=== PATIENT | female | born 1975 | race Two or more races ===

== ENCOUNTER 2019-04-01 10:11 | Inpatient (IN) | payer MEDICAID ==
[~2019-04-01] VITALS: Ht 152.4 cm; Wt 107.9 kg
[2019-04-01 10:20] VITALS: BP 125/86
--- NOTE | 2019-04-01 10:20 | NUR ---
ED Nurse Note: Patient walked into ED c/o upper abdominal pain that started earlier this morning at around 0300, patient reports a sudden acute pain that woke her up, describes it as epigastric with a rate of 10/10 pain. denies any episodes of vomit however states that she is nauseous, IV started on left AC 20 gauge, placed on a button breaker. labs sent down. will continue to monitor
[2019-04-01] MEDS ORDERED: Morphine Sulfate 4mg/ml Inj (IV USE ONLY) IVP ONE (10:30)
--- NOTE | 2019-04-01 10:30 | Emergency Room Report ---
History of Present Illness General Chief Complaint: Abdominal Pain Source: Patient Present Illness HPI Patient is a 43-year-old female presented after acute onset of epigastric pain. This radiates to her back. Patient reports having onset of symptoms approximately 3:00 this morning. She denies any recent alcohol use. She denies prior history of gallstones. Denies similar episodes of pain in the past. Had not been vomiting but had increased nausea. She denies any black or bloody stools. Denies any vomiting. Pain is constant nature. Patient denies being . Denies prior surgeries. Denies history of diabetes or ulcer disease. Allergies: Coded Allergies: No Known Allergies (Unverified , 04/01/19) Patient History Past Medical History: see triage record Last Menstrual Period: 03/20/2019 Now: No : 1 Para: 1 Reviewed Nursing Documentation: PMH: Agreed; PSxH: Agreed Nursing Documentation-PM Past Medical History: No Stated History Review of Systems All Other Systems: negative except mentioned in HPI Physical Exam Vital Signs Date Time Temp Pulse Resp B/P (MAP) Pulse Ox O2 Delivery O2 Flow Rate FiO2 04/01/19 10:15 97.5 80 18 125/86 (99) 100 Room Air Sp02 EP Interpretation: reviewed, normal General Appearance: normal inspection, well appearing, no apparent distress, alert, GCS 15 Head: atraumatic ENT: normal ENT inspection, hearing grossly normal, normal voice Neck: normal inspection, full range of motion, supple, no bony tend Respiratory: normal inspection, lungs clear, normal breath sounds, no respiratory distress, no retraction, no wheezing Cardiovascular #1: regular rate, rhythm, no edema Gastrointestinal: normal inspection, normal bowel sounds, non tender, soft, no guarding, no hernia Genitourinary: no CVA tenderness Musculoskeletal: normal inspection, back normal, normal range of motion Neurologic: normal inspection, alert, oriented x3, responsive, speech normal Psychiatric: normal inspection, judgement/insight normal, mood/affect normal Medical Decision Making Diagnostic Impression: Primary Impression: Symptomatic cholelithiasis ER Course Patient presented for abdominal pain. Differential diagnoses pancreatitis, included ischemic bowel, appendicitis, perforated viscus, abdominal aortic aneurysm, inferior myocardial infarction, viral gastroenteritis among others.Because patient's complexity imaging studies, and laboratory testing ordered. Laboratory testing showed . Electrolytes normal Lipase was normal White blood count was normal White blood count Abdominal ultrasound showed large gallstone in the gallbladder neck without any evidence of pericolic fluid or wall thickening. Patient was given morphine for pain. She continued to have pain and was also given additional dose of Toradol. Patient was given additional dose of morphine as well. Patient continued to have pain which is approximately 8 hours after pains onset.Dr. Albarran was contacted for Dr. Can for inpatient management. Dr. Up was contacted for surgical consult. Labs Test 04/01/19 10:20 White Blood Count 9.9 K/UL (4.8-10.8) Red Blood Count 5.10 M/UL (4.20-5.40) Hemoglobin 14.4 G/DL (12.0-16.0) Hematocrit 43.4 % (37.0-47.0) Mean Corpuscular Volume 85 FL (80-99) Mean Corpuscular Hemoglobin 28.2 PG (27.0-31.0) Mean Corpuscular Hemoglobin Concent 33.1 G/DL (32.0-36.0) Red Cell Distribution Width 11.0 % (11.6-14.8) Platelet Count 278 K/UL (150-450) Mean Platelet Volume 6.8 FL (6.5-10.1) Neutrophils (%) (Auto) 79.7 % (45.0-75.0) Lymphocytes (%) (Auto) 17.2 % (20.0-45.0) Monocytes (%) (Auto) 2.4 % (1.0-10.0) Eosinophils (%) (Auto) 0.1 % (0.0-3.0) Basophils (%) (Auto) 0.6 % (0.0-2.0) Prothrombin Time 9.5 SEC (9.30-11.50) Prothromb Time International Ratio 0.9 (0.9-1.1) Activated Partial Thromboplast Time 28 SEC (23-33) Urine Color Pale yellow Urine Appearance Clear Urine pH 5 (4.5-8.0) Urine Specific [place] 1.020 (1.005-1.035) Urine Protein 1+ (NEGATIVE) Urine Glucose (UA) Negative (NEGATIVE) Urine Ketones 2+ (NEGATIVE) Urine Blood 2+ (NEGATIVE) Urine Nitrite Negative (NEGATIVE) Urine Bilirubin Negative (NEGATIVE) Urine Urobilinogen Normal MG/DL (0.0-1.0) Urine Leukocyte Esterase 2+ (NEGATIVE) Urine RBC 0-2 /HPF (0 - 2) Urine WBC 2-4 /HPF (0 - 2) Urine Squamous Epithelial Cells Moderate /LPF (NONE/OCC) Urine Bacteria Few /HPF (NONE) Urine Mucus Few /LPF (NONE/OCC) Urine HCG, Qualitative Negative (NEGATIVE) Sodium Level 137 MMOL/L (136-145) Potassium Level 3.5 MMOL/L (3.5-5.1) Chloride Level 103 MMOL/L (98-107) Carbon Dioxide Level 24 MMOL/L (21-32) Anion Gap 10 mmol/L (5-15) Blood Urea Nitrogen 9 mg/dL (7-18) Creatinine 0.8 MG/DL (0.55-1.30) Estimat Glomerular Filtration Rate > 60 mL/min (>60) Glucose Level 122 MG/DL (74-106) Calcium Level 8.9 MG/DL (8.5-10.1) Total Bilirubin 0.3 MG/DL (0.2-1.0) Aspartate Amino Transf (AST/SGOT) 23 U/L (15-37) Alanine Aminotransferase (ALT/SGPT) 36 U/L (12-78) Alkaline Phosphatase 81 U/L (46-116) Total Protein 7.8 G/DL (6.4-8.2) Albumin 3.9 G/DL (3.4-5.0) Globulin 3.9 g/dL Albumin/Globulin Ratio 1.0 (1.0-2.7) Lipase 222 U/L (73-393) Urine Opiates Screen Negative (NEGATIVE) Urine Barbiturates Screen Negative (NEGATIVE) Phencyclidine (PCP) Screen Negative (NEGATIVE) Urine Amphetamines Screen Negative (NEGATIVE) Urine Benzodiazepines Screen Negative (NEGATIVE) Urine Cocaine Screen Negative (NEGATIVE) Urine Marijuana (THC) Screen Negative (NEGATIVE) Last Vital Signs Date Time Temp Pulse Resp B/P (MAP) Pulse Ox O2 Delivery O2 Flow Rate FiO2 04/01/19 10:15 97.5 80 18 125/86 (99) 100 Room Air Status: unchanged Disposition: ADMITTED INPATIENT Condition: Stable Referrals: [facility],REFERRING (PCP) Gabriel Dominguez MD Apr 01, 2019 10:30
[2019-04-01 10:44] LABS: BASOPHILS % (AUTO) 0.6 % (0.0-2.0); EOSINOPHILS % (AUTO) 0.1 % (0.0-3.0); HEMATOCRIT 43.4 % (37.0-47.0); HEMOGLOBIN 14.4 G/DL (12.0-16.0); LYMPHOCYTES % (AUTO) 17.2 % (20.0-45.0); MEAN CORPUSCULAR VOLUME 85 FL (80-99); MONOCYTES % (AUTO) 2.4 % (1.0-10.0); NEUTROPHILS % (AUTO) 79.7 % (45.0-75.0); PLATELET COUNT 278 K/UL (150-450); WHITE BLOOD COUNT 9.9 K/UL (4.8-10.8)
[2019-04-01 10:46] LABS: APPEARANCE,URINE CLEAR; BILIRUBIN, URINE NEGATIVE (NEGATIVE); COLOR,URINE PALE YELLOW; GLUCOSE, URINE (UA) NEGATIVE (NEGATIVE); KETONES,URINE 2+ (NEGATIVE); LEUKOCYTE ESTERASE ,URINE 2+ (NEGATIVE); NITRITE,URINE NEGATIVE (NEGATIVE); PH,URINE 5 (4.5-8.0); PROTEIN,URINE 1+ (NEGATIVE); UROBILINOGEN,URINE NORMAL MG/DL (0.0-1.0)
[2019-04-01 10:49] LABS: INR 0.9 (0.9-1.1)
[2019-04-01 10:57] LABS: ALANINE AMINOTRANSFERASE 36 U/L (12-78); ALBUMIN 3.9 G/DL (3.4-5.0); ALKALINE PHOSPHATASE 81 U/L (46-116); ANION GAP 10 mmol/L (5-15); ASPARTATE AMINO TRANSFERASE 23 U/L (15-37); BILIRUBIN,TOTAL 0.3 MG/DL (0.2-1.0); BLOOD UREA NITROGEN 9 mg/dL (7-18); CALCIUM 8.9 MG/DL (8.5-10.1); CARBON DIOXIDE 24 MMOL/L (21-32); CHLORIDE 103 MMOL/L (98-107); CREATININE 0.8 MG/DL (0.55-1.30); POTASSIUM 3.5 MMOL/L (3.5-5.1); SODIUM 137 MMOL/L (136-145)
--- NOTE | 2019-04-01 11:35 | Diagnostic Imaging Report ---
EXAM: US Abdomen Complete CLINICAL HISTORY: PAIN TECHNIQUE: Real-time ultrasound of the abdomen (complete) with image documentation. COMPARISON: No relevant prior studies available. FINDINGS: Liver: Liver diameter 17.82 cm. Diffusely increased echotexture. No visible parenchymal lesions. No intrahepatic biliary ductal dilatation. Gallbladder: Cholelithiasis with stones measuring up to 2.7 cm, and a stone lodged in the gallbladder neck. No wall thickening. No pericholecystic fluid. Common bile duct: Common bile duct diameter 0.47 mm, within normal limits. Pancreas: Unremarkable as visualized. Pancreatic body and tail are obscured by bowel gas. Kidneys: Right kidney length of 11.52 cm. Left kidney length of 10.95 cm. Normal cortical thickness. No visible stones. No hydronephrosis. 1. 2 cm simple-appearing cyst in the left lower renal pole. Spleen: Spleen length of 8.36 cm, within normal limits. Aorta: Unremarkable. Visualized portions appear unremarkable without evidence of aneurysm. Inferior vena cava: Unremarkable. IMPRESSION: 1. Cholelithiasis with stones measuring up to 2.7 cm and the stone lodged in the gallbladder neck. No gallbladder wall thickening or pericholecystic fluid. No blurry ductal dilatation. 2. 1.2 cm simple-appearing cortical cyst in the left lower renal pole. 3. Diffusely echogenic liver, suggesting fatty infiltration.
[2019-04-01] MEDS ORDERED: Ketorolac 30mg Inj IV ONE (12:15)
--- NOTE | 2019-04-01 12:15 | NUR ---
ED Nurse Note: informed Dr. Dominguez of patients pain, rates a 01/07. will wait for further orders
[2019-04-01] MEDS ORDERED: Morphine Sulfate 2mg/ml Inj(IV/IM USE ONLY) IVP ONE (12:30)
[2019-04-01] MEDS ORDERED: D5 1/2NS 1,000 ML IV SCH (13:00)
[2019-04-01 13:25] VITALS: BP 135/82
--- NOTE | 2019-04-01 14:32 | NUR ---
ED Nurse Note: Patient in bed waiting for room assignment. will continue to monitor
[2019-04-01] MEDS ORDERED: Milk of Magnesia 30ml Ud ORAL PRN (15:15)
[2019-04-01] MEDS ORDERED: LORazepam 1mg tab ORAL PRN (15:15)
[2019-04-01] MEDS ORDERED: Morphine Sulfate 2mg/ml Inj(IV/IM USE ONLY) IVP PRN (15:15)
[2019-04-01] MEDS ORDERED: Mylanta II UD 30ml ORAL PRN (15:15)
[2019-04-01 15:40] VITALS: BP 110/60
[2019-04-01 16:00] VITALS: BP 130/89
--- NOTE | 2019-04-01 16:00 | NUR ---
TRANSFER TO FLOOR: Patient transferred to Med-surg as ordered, per . Reprot given to CLIFF Barrett
--- NOTE | 2019-04-01 16:55 | NUR ---
NURSE NOTES: Received patient awake, alert and oriented via gurney from the ED. Oriented patient to room. Belongings verified. Bed at lowest level with 2 side rails up. Call light within reach. In no apparent distress at this time. Will continue to monitor.
[2019-04-01] MEDS: cefTRIAXone 1 GM in NS 55 ML IVPB SCH (17:59)
[2019-04-01] MEDS: Morphine Sulfate 2mg/ml Inj(IV/IM USE ONLY) IVP PRN (17:59)
--- NOTE | 2019-04-01 19:20 | NUR ---
HAND-OFF: Report given to CLIFF Hairston.
[2019-04-01] MEDS ORDERED: Morphine Sulfate 4mg/ml Inj (IV USE ONLY) IVP PRN ×2 (19:45→20:30)
--- NOTE | 2019-04-01 19:46 | NUR ---
NURSE NOTES: Pt is in bed AOx4, verbally able to needs known, Uz[place] speaking. Breathing on room air. No acute distress noted. IV on L AC 20g is patent. Called Dr Up to increase the dosage of pain medicine due to C/O current dosage is not effective. Order received and carried out. Bed in low and locked position. Call light within reach. Will continue to monitor the pt for safety.
[2019-04-01 20:00] VITALS: BP 137/83
[2019-04-01] MEDS: Docusate 100mg cap ORAL SCH (21:00)
--- NOTE | 2019-04-01 21:07 | History and Physical ---
History of Present Illness General Date patient seen: Apr 01, 2019 Reason for Hospitalization: Abdominal Pain Present Illness HPI This is a 43-year-old female with a past medical history of obesity presenting with right upper quadrant, constant, sharp, 8 out of 10, radiating to her back abdominal pain since 3 AM this morning. The patient had a similar episode 2 years ago and it resolved on its own. She has some nausea but no vomiting. Denies any fever or chills chest pain shortness of breath cough. In the ER the patient had a temperature 97.5 pulse 80 respirations 18 pressure 125/86 saturating 100% on room air. WBCs 9.9 lipase 222 CMP and CBC normal. INR 0.9 UA negative, UDS negative. Right upper quadrant ultrasound showed cholelithiasis Allergies: None Medications B12 Past medical history none Surgical history left breast mass excision Family history mother breast cancer at 85 Allergies: Coded Allergies: No Known Allergies (Unverified , 04/01/19) Medication History No Active Prescriptions or Reported Meds Patient History Healthcare decision maker Resuscitation status Full Code Advanced Directive on File Review of Systems Constitutional: Denies: see HPI, chills, sweats, fever, malaise, weakness, other Eye: Denies: see HPI, eye pain, blurred vision, tearing, double vision, nose pain, nose congestion, acuity changes, discharge, other ENT: Denies: see HPI, ear pain, ear discharge, nose pain, nose congestion, throat pain, throat swelling, mouth pain, hearing loss, nasal discharge, other Respiratory: Denies: see HPI, cough, orthopnea, shortness of breath, stridor, wheezing, SCHAFER, sputum, other Cardiovascular: Denies: see HPI, chest pain, edema, palpitations, syncope, PND , other Gastrointestinal: Reports: abdominal pain, nausea; Denies: see HPI, constipation, diarrhea, vomiting, melena, hematemesis, other Genitourinary: Denies: see HPI, discharge, dysuria, frequency, hematuria, pain , retention, incontinence, urgency, vag bleed/dc, other Musculoskeletal: Denies: see HPI, back pain, gout, joint pain, joint swelling, muscle pain, muscle stiffness, other Skin: Denies: see HPI, rash, change in color, change in hair/nails, dryness, lesions, other Psychiatric: Denies: see HPI, prior hx, anxiety, depressed feelings, emotional problems, SI, HI, hallucinations, other Neurological: Denies: see HPI, headache, numbness, paresthesia, seizure, tingling, tremors, focal weakness, syncope, dizziness, other Endocrine: Denies: see HPI, excessive sweating, flushing, intolerance to temperature, increased thirst, increased urine, unexplained weight loss, other Hematologic/Lymphatic: Denies: see HPI, anemia, blood clots, easy bleeding, easy bruising, swollen glands, diathesis, other Physical Exam General Appearance: WD/WN, no apparent distress, alert Lines, tubes and drains: peripheral HEENT: normocephalic, atraumatic Neck: non-tender, normal alignment, supple Respiratory/Chest: chest wall non-tender, lungs clear, normal breath sounds Cardiovascular/Chest: normal peripheral pulses, normal rate, regular rhythm, no JVD Abdomen: other - Soft, nondistended, bowel sounds present, tenderness to palpation of epigastric and right upper quadrant with positive De Jesus sign Extremities: normal range of motion, non-tender Skin Exam: normal pigmentation, warm/dry Neurologic: wafer cleaner II-XII grossly normal, no motor/sensory deficits, alert, oriented x 3 Lymphatic: anterior cervical - No lymphadenopathy Last 24 Hour Vital Signs Date Time Temp Pulse Resp B/P (MAP) Pulse Ox O2 Delivery O2 Flow Rate FiO2 04/01/19 18:29 98.1 04/01/19 16:13 Room Air 04/01/19 16:00 98.5 83 20 127/70 98 Room Air 04/01/19 16:00 98.1 88 18 130/89 (103) 98 04/01/19 15:40 98.2 83 18 110/60 100 Room Air 04/01/19 13:25 97.5 86 18 135/82 100 Room Air 04/01/19 11:05 97.5 04/01/19 10:20 80 18 Room Air 04/01/19 10:20 97.5 86 18 125/86 100 Room Air 04/01/19 10:15 97.5 80 18 125/86 (99) 100 Room Air Laboratory Tests Test 04/01/19 10:20 White Blood Count 9.9 K/UL (4.8-10.8) Red Blood Count 5.10 M/UL (4.20-5.40) Hemoglobin 14.4 G/DL (12.0-16.0) Hematocrit 43.4 % (37.0-47.0) Mean Corpuscular Volume 85 FL (80-99) Mean Corpuscular Hemoglobin 28.2 PG (27.0-31.0) Mean Corpuscular Hemoglobin Concent 33.1 G/DL (32.0-36.0) Red Cell Distribution Width 11.0 % (11.6-14.8) L Platelet Count 278 K/UL (150-450) Mean Platelet Volume 6.8 FL (6.5-10.1) Neutrophils (%) (Auto) 79.7 % (45.0-75.0) H Lymphocytes (%) (Auto) 17.2 % (20.0-45.0) L Monocytes (%) (Auto) 2.4 % (1.0-10.0) Eosinophils (%) (Auto) 0.1 % (0.0-3.0) Basophils (%) (Auto) 0.6 % (0.0-2.0) Prothrombin Time 9.5 SEC (9.30-11.50) Prothromb Time International Ratio 0.9 (0.9-1.1) Activated Partial Thromboplast Time 28 SEC (23-33) Urine Color Pale yellow Urine Appearance Clear Urine pH 5 (4.5-8.0) Urine Specific [place] 1.020 (1.005-1.035) Urine Protein 1+ (NEGATIVE) H Urine Glucose (UA) Negative (NEGATIVE) Urine Ketones 2+ (NEGATIVE) H Urine Blood 2+ (NEGATIVE) H Urine Nitrite Negative (NEGATIVE) Urine Bilirubin Negative (NEGATIVE) Urine Urobilinogen Normal MG/DL (0.0-1.0) Urine Leukocyte Esterase 2+ (NEGATIVE) H Urine RBC 0-2 /HPF (0 - 2) Urine WBC 2-4 /HPF (0 - 2) Urine Squamous Epithelial Cells Moderate /LPF (NONE/OCC) H Urine Bacteria Few /HPF (NONE) Urine Mucus Few /LPF (NONE/OCC) H Urine HCG, Qualitative Negative (NEGATIVE) Sodium Level 137 MMOL/L (136-145) Potassium Level 3.5 MMOL/L (3.5-5.1) Chloride Level 103 MMOL/L (98-107) Carbon Dioxide Level 24 MMOL/L (21-32) Anion Gap 10 mmol/L (5-15) Blood Urea Nitrogen 9 mg/dL (7-18) Creatinine 0.8 MG/DL (0.55-1.30) Estimat Glomerular Filtration Rate > 60 mL/min (>60) Glucose Level 122 MG/DL (74-106) H Calcium Level 8.9 MG/DL (8.5-10.1) Total Bilirubin 0.3 MG/DL (0.2-1.0) Aspartate Amino Transf (AST/SGOT) 23 U/L (15-37) Alanine Aminotransferase (ALT/SGPT) 36 U/L (12-78) Alkaline Phosphatase 81 U/L (46-116) Total Protein 7.8 G/DL (6.4-8.2) Albumin 3.9 G/DL (3.4-5.0) Globulin 3.9 g/dL Albumin/Globulin Ratio 1.0 (1.0-2.7) Lipase 222 U/L (73-393) Urine Opiates Screen Negative (NEGATIVE) Urine Barbiturates Screen Negative (NEGATIVE) Phencyclidine (PCP) Screen Negative (NEGATIVE) Urine Amphetamines Screen Negative (NEGATIVE) Urine Benzodiazepines Screen Negative (NEGATIVE) Urine Cocaine Screen Negative (NEGATIVE) Urine Marijuana (THC) Screen Negative (NEGATIVE) Height (Feet): 5 Height (Inches): 1.00 Weight (Pounds): 224 Medications Current Medications Medications (Trade) Dose Ordered Sig/Reba Route PRN Reason Start Time Stop Time Status Last Admin Dose Admin Acetaminophen (Tylenol) 650 mg Q4H PRN ORAL fever (temp>100.4F) 04/01/19 15:15 05/01/19 15:14 Al Hydroxide/Mg Hydroxide (Mylanta II) 30 ml Q6H PRN ORAL dyspepsia 04/01/19 15:15 05/01/19 15:14 Bisacodyl (Dulcolax) 10 mg HSPRN PRN RECTAL Constipation 04/01/19 15:15 05/01/19 15:14 Ceftriaxone Sodium 1 gm/ Sodium Chloride 55 ml @ 110 mls/hr DAILY IVPB 04/01/19 18:00 04/08/19 17:59 04/01/19 17:59 Dextrose (Dextrose 50%) 25 ml Q30M PRN IV Hypoglycemia 04/01/19 15:15 05/01/19 15:14 Dextrose (Dextrose 50%) 50 ml Q30M PRN IV Hypoglycemia 04/01/19 15:15 05/01/19 15:14 Diphenhydramine HCl (Benadryl) 25 mg Q6H PRN ORAL Itching/Pruritis 04/01/19 15:15 05/01/19 15:14 Docusate Sodium (Colace) 100 mg EVERY 12 HOURS ORAL 04/01/19 21:00 05/01/19 20:59 Famotidine (Pepcid) 40 mg DAILY ORAL 04/02/19 09:00 05/02/19 08:59 Lorazepam (Ativan) 1 mg Q4H PRN ORAL For Anxiety 04/01/19 15:15 04/08/19 15:14 Magnesium Hydroxide (Mom) 30 ml HSPRN PRN ORAL Constipation 04/01/19 15:15 05/01/19 15:14 Metronidazole 100 ml @ 100 mls/hr Q8HR IVPB 04/01/19 20:00 04/08/19 19:59 Morphine Sulfate (Morphine Sulfate) 1 mg Q3H PRN IVP Breakthrough Pain 04/01/19 15:15 04/08/19 15:14 Morphine Sulfate (Morphine Sulfate) 2 mg Q3H PRN IVP Moderate Pain (Pain Scale 4-6) 04/01/19 15:15 04/08/19 15:14 04/01/19 17:59 Morphine Sulfate (Morphine Sulfate) 4 mg Q4H PRN IVP Severe Pain (Pain Scale 7-10) 04/01/19 20:30 04/08/19 20:29 Ondansetron HCl (Zofran) 4 mg Q6H PRN IVP Nausea & Vomiting 04/01/19 15:15 05/01/19 15:14 Sodium Chloride 1,000 ml @ 100 mls/hr Q10H IV 04/01/19 18:45 05/01/19 18:44 04/01/19 18:45 Temazepam (Restoril) 15 mg HSPRN PRN ORAL Insomnia 04/01/19 21:00 04/08/19 20:59 Assessment/Plan Problem List: (1) Abdominal pain ICD Codes: R10.9 - Unspecified abdominal pain SNOMED: 11508519 (2) Obesity ICD Codes: E66.9 - Obesity, unspecified SNOMED: 731776085, 474323242 (3) History of partial mastectomy of left breast ICD Codes: Z90.12 - Acquired absence of left breast and nipple SNOMED: 76904864, 900099666 (4) Symptomatic cholelithiasis ICD Codes: K80.20 - Calculus of gallbladder without cholecystitis without obstruction SNOMED: 504336005, 796638644 Assessment/Plan: 43-year-old female with a history of obesity presenting with symptomatic cholelithiasis. #Symptomatic cholelithiasis. Rule out developing cholecystitis #Obesity #Abdominal pain -Admit to [facility] -Appreciate general surgery recommendations: Dr. Up -Start Rocephin 1 g IV daily (04/01/19 - ) -Start metronidazole 500 mg every 8 hours (04/01/19 - ) -Tylenol and morphine as needed for pain -Zofran as needed for nausea -Sodium chloride at 100 cc/h -Counseled patient on weight loss FENPPX DVTPPX: SCDs, as patient may require surgery GI PPX: pepcid Fluids: as above Diet: NPO except meds Lines: peripheral PT/OT: none needd Code status: Full Dispo: Home Reason for Continued Hospitalization: Abdominal pain 73 inutes spent on this encounter. Discussed with RN, Patient, ED staff, and general surgery . > 50% spent on counseling and care coordination. Time of note may not reflect time patient was seen. Jose Salas D.O. Apr 01, 2019 21:07
[2019-04-02] VITALS: BP 134/80
--- NOTE | 2019-04-02 01:39 | NUR ---
NURSE NOTES: Pt is in bed asleep. Evening meds administered as ordered and assisted as needed. Bed in low and locked position. Call light within reach. Will continue to monitor the pt.
--- NOTE | 2019-04-02 01:49 | NUR ---
NURSE NOTES: Gutierrez scan completed and result is pending.
--- NOTE | 2019-04-02 02:30 | Diagnostic Imaging Report ---
Indication: Abdominal Pain Technique: 5.3 mCi of technetium 99 m-Choletec was injected intravenously. Planar imaging of the abdomen was then performed every 5 minutes up to 30 minutes and every 10 minutes up to one hour. Oblique views were also obtained. Delayed 4 hour planar images obtained also. Findings: There is prompt uptake within the liver with good washout of radiotracer from the liver on subsequent imaging. There is excretion into the biliary ducts. There is no gallbladder activity indicating cystic duct obstruction. Bowel activity is demonstrated in a timely fashion indicating patency of the common bile duct. Impression: Cystic duct obstruction compatible with cholecystitis [facility] has communicated the preliminary results to the Emergency Department. Their findings are largely concordant with this report.
--- NOTE | 2019-04-02 03:14 | NUR ---
NURSE NOTES: Radiology dept [facility] called and informed that pt's hyda scan result is positive for cholecystitis. Called and left message to Dr Up regarding scan result.
[2019-04-02 04:00] VITALS: BP 148/88
[2019-04-02] MEDS: Morphine Sulfate 2mg/ml Inj(IV/IM USE ONLY) IVP PRN ×2 (04:42→10:08)
--- NOTE | 2019-04-02 06:56 | NUR ---
NURSE NOTES: Called Dr Bennett and left a message regarding Hyda scan result positive cholecystitis. Awaiting for call back.
--- NOTE | 2019-04-02 07:26 | NUR ---
HAND-OFF: Report given to CLIFF Cisneros.
--- NOTE | 2019-04-02 07:34 | NUR ---
NURSE NOTES: received report from CLIFF Hariston. patient in bed. alert. oriented. verbally responsive. no respiratory distress noted. c/o pain on abd area. pain med due at 0930. IV on LAC 20 running NS@100. NPO. no skin issue. no islolation. bed in the lowest position and locked. call light within reach. will continue to provide plan of care.
[2019-04-02 08:00] VITALS: BP 150/93
[2019-04-02 08:14] LABS: BASOPHILS % (AUTO) 0.3 % (0.0-2.0); EOSINOPHILS % (AUTO) 0.1 % (0.0-3.0); HEMATOCRIT 39.6 % (37.0-47.0); HEMOGLOBIN 13.1 G/DL (12.0-16.0); LYMPHOCYTES % (AUTO) 14.8 % (20.0-45.0); MEAN CORPUSCULAR VOLUME 86 FL (80-99); MONOCYTES % (AUTO) 5.7 % (1.0-10.0); NEUTROPHILS % (AUTO) 79.1 % (45.0-75.0); PLATELET COUNT 254 K/UL (150-450); WHITE BLOOD COUNT 11.4 K/UL (4.8-10.8)
[2019-04-02] MEDS ORDERED: Tubing IV Secondary IV ONE (08:27)
[2019-04-02] MEDS: cefTRIAXone 1 GM in NS 55 ML IVPB SCH (08:27)
[2019-04-02] MEDS: Docusate 100mg cap ORAL SCH ×2 (08:27→21:50)
[2019-04-02 08:45] LABS: ALANINE AMINOTRANSFERASE 30 U/L (12-78); ALBUMIN 3.2 G/DL (3.4-5.0); ALBUMIN/GLOBULIN RATIO 0.9 (1.0-2.7); ALKALINE PHOSPHATASE 73 U/L (46-116); AMYLASE 40 U/L (25-115); ANION GAP 7 mmol/L (5-15); ASPARTATE AMINO TRANSFERASE 15 U/L (15-37); BILIRUBIN,TOTAL 0.5 MG/DL (0.2-1.0); BLOOD UREA NITROGEN 5 mg/dL (7-18); CARBON DIOXIDE 27 MMOL/L (21-32); CHLORIDE 103 MMOL/L (98-107); CREATININE 0.7 MG/DL (0.55-1.30); POTASSIUM 3.5 MMOL/L (3.5-5.1); SODIUM 137 MMOL/L (136-145)
--- NOTE | 2019-04-02 10:32 | NUR ---
NURSE NOTES: patient c/o being NPO and not able to rest even with morphine for pain. HIDA scan resulted. patient asked what is her status at this time and wants to know what is the next step. notified Dr. Up and will see the patient later. Patient is aware the surgeon will come to see her soon.
--- NOTE | 2019-04-02 11:30 | NUR ---
NURSE NOTES: patient is anxious. c/o chest tightness when she breathes in. O2 sat 98% on room air. pain 8/10 on abd area. patient said the ztucheob1ev/1ml only works for hour but she does not want to get 4mg/2ml since she is NPO, not want to feel to drowsy. RN provided hot pack for relieving pain and helped to feel comfort. will continue to monitor.
[2019-04-02 12:00] VITALS: BP 135/74
--- NOTE | 2019-04-02 12:21 | NUR ---
NURSE NOTES: patient seen by . keep patient NPO except medications and ice chips. MD will f/u for the further procedures.
--- NOTE | 2019-04-02 12:30 | NUR ---
NURSE NOTES: Patient seen by Dr. Kirt Rivera. new order of EKG tracing only and troponin for chest tightness.
--- NOTE | 2019-04-02 13:41 | Consultation ---
History of Present Illness General Date patient seen: Apr 02, 2019 Reason for Hospitalization: Abdominal Pain Present Illness HPI This is a very pleasant 43-year-old female with no significant medical committees other than obesity who presented to the emergency department [facility] complaining of acute onset of right upper quadrant abdominal pain with associated nausea. Patient states proximal 5 months ago she had a similar episode which resolved with home remedy tea. During this episode it did not improve suddenly so she came in for evaluation. In ED identified to have right upper quadrant tenderness positive De Jesus's. Admitted for care and management. Surgery called to evaluate and assist with care. Patient seen, patient [place], chart reviewed. States nausea but no emesis. Normal bowel movements. Pain is been intermittent since onset yesterday. Better with pain medications but notable when palpated or pain medications were off. Pain cramping 10 out of 10 at max. Currently 6 out of 10. Today noted to have a increasing leukocytosis. HIDA scan positive. Allergies: Coded Allergies: No Known Allergies (Unverified , 04/01/19) Medication History No Active Prescriptions or Reported Meds Patient History History Provided By: Patient, Medical Record, PMD Healthcare decision maker Resuscitation status Full Code Advanced Directive on File Past Medical/Surgical History Past Medical/Surgical History: (1) Abdominal pain (2) Obesity (3) Symptomatic cholelithiasis Review of Systems Review of Symptoms General ROS: no weight loss or fever Psychological ROS: no depression or mood changes, no memory loss Ophthalmic ROS: no visual changes or eye irritation ENT ROS: no nasal congestion, hearing loss, dizziness Allergy and Immunology ROS: no allergic symptoms or urticaria Hematological and Lymphatic ROS: no swollen glands, unusual bleeding or bruising Endocrine ROS: no polyuria, polydipsia, weight changes, temperature intolerance Respiratory ROS: no cough, shortness of breath, or wheezing Cardiovascular ROS: no chest pain or dyspnea on exertion Gastrointestinal ROS: abdominal pain, no bright red blood in stool. Musculoskeletal ROS: no myalgias or arthralgias Neurological ROS: no TIA or stroke symptoms Dermatological ROS: no new or changing skin lesions, rashes or pruritis Physical Exam Physical Exam General appearance: alert, cooperative, no distress, appears stated age Head: Normocephalic, without obvious abnormality, atraumatic Eyes: conjunctivae/corneas clear. PERRL, EOM's intact. Fundi benign Throat: Lips, mucosa, and tongue normal. Teeth and gums normal Neck: supple, symmetrical, trachea midline, no adenopathy, thyroid: not enlarged, symmetric, no tenderness/mass/nodules, no carotid bruit and no JVD Lungs: clear to auscultation bilaterally Heart: regular rate and rhythm, S1, S2 normal, no murmur, click, rub or gallop Abdomen: soft, RUQ tender +murphys. Bowel sounds normal. No masses, no organomegaly Extremities: extremities normal, atraumatic, no cyanosis or edema Pulses: 2+ and symmetric Skin: Skin color, texture, turgor normal. No rashes or lesions Neurologic: Grossly normal Last 24 Hour Vital Signs Date Time Temp Pulse Resp B/P (MAP) Pulse Ox O2 Delivery O2 Flow Rate FiO2 04/02/19 12:00 100.0 106 19 135/74 (94) 98 04/02/19 09:00 Room Air 04/02/19 08:00 98.4 104 20 150/93 (112) 99 04/02/19 04:00 99.2 90 18 148/88 (108) 100 04/02/19 00:00 98.8 84 18 134/80 (98) 100 04/01/19 21:00 Room Air 04/01/19 20:00 98.4 88 18 137/83 (101) 99 04/01/19 18:29 98.1 04/01/19 16:13 Room Air 04/01/19 16:00 98.5 83 20 127/70 98 Room Air 04/01/19 16:00 98.1 88 18 130/89 (103) 98 04/01/19 15:40 98.2 83 18 110/60 100 Room Air Intake and Output 04/01/19 04/02/19 19:00 07:00 Intake Total 1370 ml 1000 ml Balance 1370 ml 1000 ml Intake IV Total 1370 ml 1000 ml # Voids 3 2 Laboratory Tests Test 04/02/19 06:32 White Blood Count 11.4 K/UL (4.8-10.8) H Red Blood Count 4.60 M/UL (4.20-5.40) Hemoglobin 13.1 G/DL (12.0-16.0) Hematocrit 39.6 % (37.0-47.0) Mean Corpuscular Volume 86 FL (80-99) Mean Corpuscular Hemoglobin 28.6 PG (27.0-31.0) Mean Corpuscular Hemoglobin Concent 33.2 G/DL (32.0-36.0) Red Cell Distribution Width 11.0 % (11.6-14.8) L Platelet Count 254 K/UL (150-450) Mean Platelet Volume 6.4 FL (6.5-10.1) L Neutrophils (%) (Auto) 79.1 % (45.0-75.0) H Lymphocytes (%) (Auto) 14.8 % (20.0-45.0) L Monocytes (%) (Auto) 5.7 % (1.0-10.0) Eosinophils (%) (Auto) 0.1 % (0.0-3.0) Basophils (%) (Auto) 0.3 % (0.0-2.0) Erythrocyte Sedimentation Rate 11 MM/HR (0-20) Sodium Level 137 MMOL/L (136-145) Potassium Level 3.5 MMOL/L (3.5-5.1) Chloride Level 103 MMOL/L (98-107) Carbon Dioxide Level 27 MMOL/L (21-32) Anion Gap 7 mmol/L (5-15) Blood Urea Nitrogen 5 mg/dL (7-18) L Creatinine 0.7 MG/DL (0.55-1.30) Estimat Glomerular Filtration Rate > 60 mL/min (>60) Glucose Level 117 MG/DL (74-106) H Calcium Level 8.0 MG/DL (8.5-10.1) L Total Bilirubin 0.5 MG/DL (0.2-1.0) Aspartate Amino Transf (AST/SGOT) 15 U/L (15-37) Alanine Aminotransferase (ALT/SGPT) 30 U/L (12-78) Alkaline Phosphatase 73 U/L (46-116) C-Reactive Protein, Quantitative 6.5 mg/dL (0.00-0.90) H Total Protein 6.9 G/DL (6.4-8.2) Albumin 3.2 G/DL (3.4-5.0) L Globulin 3.7 g/dL Albumin/Globulin Ratio 0.9 (1.0-2.7) L Amylase Level 40 U/L (25-115) Height (Feet): 5 Height (Inches): 1.00 Weight (Pounds): 224 Medications Current Medications Medications (Trade) Dose Ordered Sig/Reba Route PRN Reason Start Time Stop Time Status Last Admin Dose Admin Acetaminophen (Tylenol) 650 mg Q4H PRN ORAL fever (temp>100.4F) 04/01/19 15:15 05/01/19 15:14 Al Hydroxide/Mg Hydroxide (Mylanta II) 30 ml Q6H PRN ORAL dyspepsia 04/01/19 15:15 05/01/19 15:14 Bisacodyl (Dulcolax) 10 mg HSPRN PRN RECTAL Constipation 04/01/19 15:15 05/01/19 15:14 Ceftriaxone Sodium 1 gm/ Sodium Chloride 55 ml @ 110 mls/hr DAILY IVPB 04/01/19 18:00 04/08/19 17:59 04/02/19 08:27 Dextrose (Dextrose 50%) 25 ml Q30M PRN IV Hypoglycemia 04/01/19 15:15 05/01/19 15:14 Dextrose (Dextrose 50%) 50 ml Q30M PRN IV Hypoglycemia 04/01/19 15:15 05/01/19 15:14 Diphenhydramine HCl (Benadryl) 25 mg Q6H PRN ORAL Itching/Pruritis 04/01/19 15:15 05/01/19 15:14 Docusate Sodium (Colace) 100 mg EVERY 12 HOURS ORAL 04/01/19 21:00 05/01/19 20:59 04/02/19 08:27 Famotidine (Pepcid) 40 mg DAILY ORAL 04/02/19 09:00 05/02/19 08:59 04/02/19 08:27 Lorazepam (Ativan) 1 mg Q4H PRN ORAL For Anxiety 04/01/19 15:15 04/08/19 15:14 04/02/19 11:28 Magnesium Hydroxide (Mom) 30 ml HSPRN PRN ORAL Constipation 04/01/19 15:15 05/01/19 15:14 Metronidazole 100 ml @ 100 mls/hr Q8HR IVPB 04/01/19 20:00 04/08/19 19:59 04/02/19 05:27 Morphine Sulfate (Morphine Sulfate) 1 mg Q3H PRN IVP Breakthrough Pain 04/01/19 15:15 04/08/19 15:14 Morphine Sulfate (Morphine Sulfate) 2 mg Q3H PRN IVP Moderate Pain (Pain Scale 4-6) 04/01/19 15:15 04/08/19 15:14 04/02/19 10:08 Morphine Sulfate (Morphine Sulfate) 4 mg Q4H PRN IVP Severe Pain (Pain Scale 7-10) 04/01/19 20:30 04/08/19 20:29 Ondansetron HCl (Zofran) 4 mg Q6H PRN IVP Nausea & Vomiting 04/01/19 15:15 05/01/19 15:14 Sodium Chloride 1,000 ml @ 100 mls/hr Q10H IV 04/01/19 18:45 05/01/19 18:44 04/02/19 04:34 Temazepam (Restoril) 15 mg HSPRN PRN ORAL Insomnia 04/01/19 21:00 04/08/19 20:59 Assessment/Plan Problem List: (1) Acute cholecystitis Assessment & Plan: 43-year-old female with acute cholecystitis. Afebrile, hemodynamic stable, leukocytosis worsening. Ultrasound with stones. HIDA positive. Examination with focal right upper quadrant tenderness positive De Jesus sign. Patient is not improved on antibiotics since admission. I discussed with patient the above findings and care plan. We have discussed the possibility of improvement with IV antibiotics, bowel rest , IV fluids. We discussed the possibility of need for surgical intervention. Patient has discussed with her family and at this time will continue with IV antibiotics and bowel rest. We will plan for cholecystectomy if persistent symptoms and not improving over the next 24 hours. Thank you for allowing participate patient's care. We will follow with recognitions. ICD Codes: K81.0 - Acute cholecystitis SNOMED: 18452401 (2) Abdominal pain ICD Codes: R10.9 - Unspecified abdominal pain SNOMED: 52493305 (3) Obesity ICD Codes: E66.9 - Obesity, unspecified SNOMED: 358553301, 914478324 (4) Symptomatic cholelithiasis ICD Codes: K80.20 - Calculus of gallbladder without cholecystitis without obstruction SNOMED: 114597405, 585248366 Seth Up Apr 02, 2019 13:41
--- NOTE | 2019-04-02 15:48 | General Progress Note ---
Assessment/Plan Problem List: (1) Acute cholecystitis ICD Codes: K81.0 - Acute cholecystitis SNOMED: 11581044 (2) Abdominal pain ICD Codes: R10.9 - Unspecified abdominal pain SNOMED: 45448465 (3) Obesity ICD Codes: E66.9 - Obesity, unspecified SNOMED: 445577680, 118342987 (4) History of partial mastectomy of left breast ICD Codes: Z90.12 - Acquired absence of left breast and nipple SNOMED: 90946718, 409456673 (5) Symptomatic cholelithiasis ICD Codes: K80.20 - Calculus of gallbladder without cholecystitis without obstruction SNOMED: 446698559, 014461339 Assessment/Plan: 43-year-old female with a history of obesity presenting with symptomatic cholelithiasis. #Acute cholecystitis #Abdominal pain > HIDA positive -Admit to [facility] -Appreciate general surgery recommendations: Dr. Up. NPO for surgery hopefully tomorrow 04/03/19 -Continue Rocephin 1 g IV daily (04/01/19 - ) -Continue metronidazole 500 mg every 8 hours (04/01/19 - ) -blood cultures x 2 -Tylenol and morphine as needed for pain -Zofran as needed for nausea -Sodium chloride at 100 cc/h #Chest pressure on 04/02/19. Suspect related to anxiety. -EKG -Troponin -transfer to telemetry #Obesity -Counseled patient on weight loss FENPPX DVTPPX: SCDs, GI PPX: pepcid Fluids: as above Diet: NPO except meds Lines: peripheral PT/OT: none needd Code status: Full Dispo: Home after surgery Reason for Continued Hospitalization: Abdominal pain 39 minutes spent on this encounter. Discussed with RN, Patient, and general surgery. > 50% spent on counseling and care coordination. Time of note may not reflect time patient was seen. Subjective Date patient seen: Apr 02, 2019 Constitutional: Denies: chills, diaphoresis, fever, malaise, weakness, other HEENT: Denies: eye pain, blurred vision, tearing, double vision, ear pain, ear discharge, nose pain, nose congestion, throat pain, throat swelling, mouth pain , mouth swelling, other Cardiovascular: Denies: chest pain, edema, irregular heart rate, lightheadedness, palpitations, syncope, other Respiratory: Denies: cough, orthopnea, shortness of breath, SOB with excertion , SOB at rest, sputum, stridor, wheezing, other Gastrointestinal/Abdominal: Denies: abdomen distended, abdominal pain, black stools, tarry stools, blood in stool, constipated, diarrhea, difficulty swallowing, nausea, poor appetite, poor fluid intake, rectal bleeding, vomiting , other Genitourinary: Denies: burning, discharge, frequency, flank pain, hematuria, incontinence, pain, urgency, other Neurologic/Psychiatric: Denies: anxiety, depressed, emotional problems, headache, numbness, paresthesia, pre-existing deficit, seizure, tingling, tremors, weakness, other Endocrine: Denies: excessive sweating, flushing, intolerance to cold, intolerance to heat, increased hunger, increased thirst, increased urine, unexplained weight gain, unexplained weight loss, other Hematologic/Lymphatic: Denies: anemia, easy bleeding, easy bruising, other Allergies: Coded Allergies: No Known Allergies (Unverified , 04/01/19) Subjective No acute events overnight per nursing. This morning the patient had chest pressure, lasting 10 minutes, nonradiating, across her entire chest, 5 out of 10 with associated feelings of anxiety and shortness of breath as well as diaphoresis. Patient given Ativan and symptoms resolved. He continues to have right upper quadrant abdominal pain. HIDA scan positive for cholecystitis. Denies nausea or vomiting or fevers or chills. Objective Last 24 Hour Vital Signs Date Time Temp Pulse Resp B/P (MAP) Pulse Ox O2 Delivery O2 Flow Rate FiO2 04/02/19 12:00 100.0 106 19 135/74 (94) 98 04/02/19 09:00 Room Air 04/02/19 08:00 98.4 104 20 150/93 (112) 99 04/02/19 04:00 99.2 90 18 148/88 (108) 100 04/02/19 00:00 98.8 84 18 134/80 (98) 100 04/01/19 21:00 Room Air 04/01/19 20:00 98.4 88 18 137/83 (101) 99 04/01/19 18:29 98.1 04/01/19 16:13 Room Air 04/01/19 16:00 98.5 83 20 127/70 98 Room Air 04/01/19 16:00 98.1 88 18 130/89 (103) 98 Intake and Output 04/01/19 04/02/19 19:00 07:00 Intake Total 1370 ml 1000 ml Balance 1370 ml 1000 ml Intake IV Total 1370 ml 1000 ml # Voids 3 2 Laboratory Tests 04/02/19 06:32: White Blood Count 11.4H, Red Blood Count 4.60, Hemoglobin 13.1, Hematocrit 39.6 , Mean Corpuscular Volume 86, Mean Corpuscular Hemoglobin 28.6, Mean Corpuscular Hemoglobin Concent 33.2, Red Cell Distribution Width 11.0L, Platelet Count 254, Mean Platelet Volume 6.4L, Neutrophils (%) (Auto) 79.1H, Lymphocytes (%) (Auto) 14.8L, Monocytes (%) (Auto) 5.7, Eosinophils (%) (Auto) 0.1, Basophils (%) (Auto) 0.3, Erythrocyte Sedimentation Rate 11, Sodium Level 137, Potassium Level 3.5, Chloride Level 103, Carbon Dioxide Level 27, Anion Gap 7, Blood Urea Nitrogen 5L, Creatinine 0.7, Estimat Glomerular Filtration Rate > 60, Glucose Level 117H, Calcium Level 8.0L, Total Bilirubin 0.5, Aspartate Amino Transf (AST/SGOT) 15, Alanine Aminotransferase (ALT/SGPT) 30, Alkaline Phosphatase 73, C-Reactive Protein, Quantitative 6.5H, Total Protein 6.9, Albumin 3.2L, Globulin 3.7, Albumin/Globulin Ratio 0.9L, Amylase Level 40 Height (Feet): 5 Height (Inches): 1.00 Weight (Pounds): 224 General Appearance: WD/WN, no apparent distress, alert EENT: PERRL/EOMI, normal ENT inspection Neck: non-tender, normal alignment, supple Cardiovascular: normal peripheral pulses, normal rate, regular rhythm, no JVD Respiratory/Chest: chest wall non-tender, lungs clear, normal breath sounds Abdomen: normal bowel sounds, other - Right upper quadrant tenderness to palpation. +harper's sign Extremities: normal range of motion, non-tender, normal inspection Edema: other - No lower extremity edema bilaterally Neurologic: exterminator helper termite II-XII grossly normal, no motor/sensory deficits, alert, oriented x 3 Skin: normal pigmentation, warm/dry Kirt-Wollin,Jose D.O. Apr 02, 2019 15:48
[2019-04-02 16:00] VITALS: BP 148/91
--- NOTE | 2019-04-02 17:09 | NUR ---
NURSE NOTES: patient had fever 100.9 at 1630. RN administered tylenol 650mg PO PRN for fever. rechecked @1700 fever was 101.2. VS 148/91/113, 20, 97%, pain 5/10. patient alert. oriented. easily fall asleep and arouse. Notified Dr. Kirt Rivera. is aware. no new order at this time.
--- NOTE | 2019-04-02 19:05 | NUR ---
NURSE NOTES: Received report from CLIFF Cisneros. Pt resting in bed. AAO x 4, on room air. Pt is on NPO. Dr. Moralez aware increased heart rate and BP. IV site intact and running NS 100cc/hr. Pt states pain is tolerable. No acute distress noted at this time. Bed locked, lowest position, alarm on, call light within reach. Will continue to monitor.
--- NOTE | 2019-04-02 19:29 | NUR ---
HAND-OFF: Report given to CLIFF Sandhu.
[2019-04-02 20:00] VITALS: BP 148/87
[2019-04-03] VITALS: BP 115/76
[2019-04-03 04:00] VITALS: BP 118/84
--- NOTE | 2019-04-03 05:35 | NUR ---
NURSE NOTES: Pt has low grade fever 99.2F. RN provided ice pack and helped to feel comfort. Will continue to monitor.
--- NOTE | 2019-04-03 07:30 | NUR ---
HAND-OFF: Report given to CLIFF Zavala.
[2019-04-03 08:00] VITALS: BP 117/68
[2019-04-03] MEDS: cefTRIAXone 1 GM in NS 55 ML IVPB SCH (09:50)
[2019-04-03] MEDS: Docusate 100mg cap ORAL SCH ×2 (09:50→21:10)
--- NOTE | 2019-04-03 09:50 | NUR ---
*-* NO INSURANCE INFORMATION IN THE BAR UNABLE TO SEND CLINICALS OR REVIEWS *-*
[2019-04-03 10:02] LABS: BASOPHILS % (AUTO) 1.2 % (0.0-2.0); EOSINOPHILS % (AUTO) 1.1 % (0.0-3.0); HEMATOCRIT 38.6 % (37.0-47.0); HEMOGLOBIN 12.9 G/DL (12.0-16.0); LYMPHOCYTES % (AUTO) 24.7 % (20.0-45.0); MEAN CORPUSCULAR VOLUME 85 FL (80-99); MONOCYTES % (AUTO) 5.9 % (1.0-10.0); NEUTROPHILS % (AUTO) 67.1 % (45.0-75.0); PLATELET COUNT 260 K/UL (150-450); RED BLOOD COUNT 4.56 M/UL (4.20-5.40); RED CELL DISTRIBUTION WIDTH 11.4 % (11.6-14.8); WHITE BLOOD COUNT 9.7 K/UL (4.8-10.8)
[2019-04-03 10:04] LABS: ANION GAP 8 mmol/L (5-15); BLOOD UREA NITROGEN 5 mg/dL (7-18); CALCIUM 8.6 MG/DL (8.5-10.1); CARBON DIOXIDE 27 MMOL/L (21-32); CHLORIDE 107 MMOL/L (98-107); CREATININE 0.6 MG/DL (0.55-1.30); POTASSIUM 3.5 MMOL/L (3.5-5.1); SODIUM 142 MMOL/L (136-145)
--- NOTE | 2019-04-03 11:06 | Surgery Progress Note ---
Surgery Progress Note Subjective Additional Comments Leukocytosis improved. Labs improved. Overall improving. Pain a little bit improved today. No nausea vomiting fever chills. Pending surgery. Objective Last 24 Hour Vital Signs Date Time Temp Pulse Resp B/P (MAP) Pulse Ox O2 Delivery O2 Flow Rate FiO2 04/03/19 08:00 97.7 98 20 117/68 (84) 97 04/03/19 04:00 99.2 102 18 118/84 (95) 97 04/03/19 00:00 99.2 105 18 115/76 (89) 98 04/02/19 21:00 Room Air 04/02/19 20:00 99.2 110 19 148/87 (107) 97 04/02/19 17:00 101.2 04/02/19 16:00 100.9 117 20 148/91 (110) 97 04/02/19 12:00 100.0 106 19 135/74 (94) 98 I&O Intake and Output 04/02/19 04/03/19 19:00 07:00 Intake Total 2220 ml 1400 ml Balance 2220 ml 1400 ml Intake IV Total 2220 ml 1400 ml # Voids 6 5 Cardiovascular: RSR Respiratory: clear Abdomen: soft, flat, tenderness, present bowel sounds, non-distended Extremities: no tenderness, no cyanosis Laboratory Tests Test 04/03/19 09:30 White Blood Count 9.7 K/UL (4.8-10.8) Red Blood Count 4.56 M/UL (4.20-5.40) Hemoglobin 12.9 G/DL (12.0-16.0) Hematocrit 38.6 % (37.0-47.0) Mean Corpuscular Volume 85 FL (80-99) Mean Corpuscular Hemoglobin 28.3 PG (27.0-31.0) Mean Corpuscular Hemoglobin Concent 33.4 G/DL (32.0-36.0) Red Cell Distribution Width 11.4 % (11.6-14.8) L Platelet Count 260 K/UL (150-450) Mean Platelet Volume 6.5 FL (6.5-10.1) Neutrophils (%) (Auto) 67.1 % (45.0-75.0) Lymphocytes (%) (Auto) 24.7 % (20.0-45.0) Monocytes (%) (Auto) 5.9 % (1.0-10.0) Eosinophils (%) (Auto) 1.1 % (0.0-3.0) Basophils (%) (Auto) 1.2 % (0.0-2.0) Sodium Level 142 MMOL/L (136-145) Potassium Level 3.5 MMOL/L (3.5-5.1) Chloride Level 107 MMOL/L (98-107) Carbon Dioxide Level 27 MMOL/L (21-32) Anion Gap 8 mmol/L (5-15) Blood Urea Nitrogen 5 mg/dL (7-18) L Creatinine 0.6 MG/DL (0.55-1.30) Estimat Glomerular Filtration Rate > 60 mL/min (>60) Glucose Level 93 MG/DL (74-106) Calcium Level 8.6 MG/DL (8.5-10.1) Plan Problems: (1) Acute cholecystitis Assessment & Plan: 43-year-old female with acute cholecystitis. Afebrile, hemodynamic stable, leukocytosis worsening. Ultrasound with stones. HIDA positive. Examination with focal right upper quadrant tenderness positive De Jesus sign. Patient is not improved on antibiotics since admission. I discussed with patient the above findings and care plan. We have discussed the possibility of improvement with IV antibiotics, bowel rest , IV fluids. We discussed the possibility of need for surgical intervention. Patient has discussed with her family and at this time will continue with IV antibiotics and bowel rest. We will plan for cholecystectomy if persistent symptoms and not improving over the next 24 hours. Consent OR tomorrow for danielle althea Thank you for allowing participate patient's care. We will follow with recognitions. (2) Abdominal pain (3) Obesity (4) Symptomatic cholelithiasis Seth Up Apr 03, 2019 11:06
[2019-04-03 12:00] VITALS: BP 136/84
--- NOTE | 2019-04-03 12:50 | Anethesia Preoperative Eval ---
Anesthesia Pre-op PMH/ROS General Date of Evaluation: Apr 03, 2019 Time of Evaluation: 13:25 Anesthesiologist: Neil ASA Score: ASA 2 Mallampati Score Class I : Soft palate, uvula, fauces, pillars visible Class II: Soft palate, uvula, fauces visible Class III: Soft palate, base of uvula visible Class IV: Only hard plate visible Mallampati Classification: Class II Surgeon: Jeovanny Diagnosis: Epigastric Pain Surgical Procedure: Laparoscopic Cholecystectomy Anesthesia History: none Family History: no anesthesia problems Allergies: Coded Allergies: No Known Allergies (Unverified , 04/01/19) Medications: see eMAR Patient NPO?: Yes Past Medical History Cardiovascular: Reports: HTN Other: obesity - BMI 44 Morbid PSxH Narrative: Breast Sx Anesthesia Pre-op Phys. Exam Physician Exam Last Vital Signs Date Time Temp Pulse Resp B/P (MAP) Pulse Ox O2 Delivery O2 Flow Rate FiO2 04/03/19 08:00 97.7 98 20 117/68 (84) 97 04/02/19 21:00 Room Air Constitutional: NAD Neurologic: CN 2-12 intact Cardiovascular: RRR Respiratory: CTA Gastrointestinal: S/NT/ND Airway Exam Mallampati Score: Class II MO: full Teeth: missing, intact Anesthesia Pre-op A/P Labs Hematology Test 04/03/19 09:30 White Blood Count 9.7 K/UL (4.8-10.8) Red Blood Count 4.56 M/UL (4.20-5.40) Hemoglobin 12.9 G/DL (12.0-16.0) Hematocrit 38.6 % (37.0-47.0) Mean Corpuscular Volume 85 FL (80-99) Mean Corpuscular Hemoglobin 28.3 PG (27.0-31.0) Mean Corpuscular Hemoglobin Concent 33.4 G/DL (32.0-36.0) Red Cell Distribution Width 11.4 % (11.6-14.8) L Platelet Count 260 K/UL (150-450) Mean Platelet Volume 6.5 FL (6.5-10.1) Neutrophils (%) (Auto) 67.1 % (45.0-75.0) Lymphocytes (%) (Auto) 24.7 % (20.0-45.0) Monocytes (%) (Auto) 5.9 % (1.0-10.0) Eosinophils (%) (Auto) 1.1 % (0.0-3.0) Basophils (%) (Auto) 1.2 % (0.0-2.0) Chemistry Test 04/03/19 09:30 Sodium Level 142 MMOL/L (136-145) Potassium Level 3.5 MMOL/L (3.5-5.1) Chloride Level 107 MMOL/L (98-107) Carbon Dioxide Level 27 MMOL/L (21-32) Anion Gap 8 mmol/L (5-15) Blood Urea Nitrogen 5 mg/dL (7-18) L Creatinine 0.6 MG/DL (0.55-1.30) Estimat Glomerular Filtration Rate > 60 mL/min (>60) Glucose Level 93 MG/DL (74-106) Calcium Level 8.6 MG/DL (8.5-10.1) Risk Assessment & Plan Assessment: ASA 2 Plan: GA Status Change Before Surgery: No Pre-Antibiotics Drug: Heron Booth MD Apr 03, 2019 12:50
--- NOTE | 2019-04-03 14:09 | General Progress Note ---
Assessment/Plan Problem List: (1) Symptomatic cholelithiasis ICD Codes: K80.20 - Calculus of gallbladder without cholecystitis without obstruction SNOMED: 393485632, 387044080 (2) Acute cholecystitis ICD Codes: K81.0 - Acute cholecystitis SNOMED: 17563107 (3) Obesity ICD Codes: E66.9 - Obesity, unspecified SNOMED: 331004469, 626239278 (4) Abdominal pain ICD Codes: R10.9 - Unspecified abdominal pain SNOMED: 96598611 Status: stable Assessment/Plan: 43-year-old female with a history of obesity presenting with symptomatic cholelithiasis. #Acute cholecystitis #Abdominal pain > HIDA positive -Admit to [facility] general surgery recommendations: Dr. Up. NPO for surgery 04/04 -Continue Rocephin 1 g IV daily (04/01/19 - ) -Continue metronidazole 500 mg every 8 hours (04/01/19 - ) -blood cultures x 2 -Tylenol and morphine as needed for pain -Zofran as needed for nausea -Sodium chloride at 100 cc/h #Chest pressure on 04/02/19. Suspect related to anxiety. resolved -EKG -Troponin, negative #Obesity -Counseled patient on weight loss FENPPX DVTPPX: SCDs, GI PPX: pepcid Fluids: as above Diet: NPO except meds Lines: peripheral PT/OT: none needd Code status: Full Dispo: Home after surgery Reason for Continued Hospitalization: Abdominal pain 39 minutes spent on this encounter. Discussed with RN, Patient, and general surgery. > 50% spent on counseling and care coordination. Time of note may not reflect time patient was seen. Subjective Date patient seen: Apr 03, 2019 ROS Limited/Unobtainable: No Constitutional: Denies: no symptoms, chills, diaphoresis, fever, malaise, weakness, other HEENT: Denies: no symptoms, eye pain, blurred vision, tearing, double vision, ear pain, ear discharge, nose pain, nose congestion, throat pain, throat swelling, mouth pain, mouth swelling, other Respiratory: Denies: no symptoms, cough, orthopnea, shortness of breath, SOB with excertion, SOB at rest, sputum, stridor, wheezing, other Gastrointestinal/Abdominal: Reports: no symptoms, abdomen distended, abdominal pain, black stools, tarry stools, blood in stool, constipated, diarrhea, difficulty swallowing, nausea, poor appetite, poor fluid intake, rectal bleeding , vomiting, other Genitourinary: Denies: no symptoms, burning, discharge, frequency, flank pain, hematuria, incontinence, pain, urgency, other Neurologic/Psychiatric: Denies: no symptoms, anxiety, depressed, emotional problems, headache, numbness, paresthesia, pre-existing deficit, seizure, tingling, tremors, weakness, other Endocrine: Denies: no symptoms, excessive sweating, flushing, intolerance to cold, intolerance to heat, increased hunger, increased thirst, increased urine, unexplained weight gain, unexplained weight loss, other Hematologic/Lymphatic: Denies: no symptoms, anemia, easy bleeding, easy bruising, other Allergies: Coded Allergies: No Known Allergies (Unverified , 04/01/19) Subjective seen and examined at bedside. no acute overnight events Objective Last 24 Hour Vital Signs Date Time Temp Pulse Resp B/P (MAP) Pulse Ox O2 Delivery O2 Flow Rate FiO2 04/03/19 09:00 Room Air 04/03/19 08:00 97.7 98 20 117/68 (84) 97 04/03/19 04:00 99.2 102 18 118/84 (95) 97 04/03/19 00:00 99.2 105 18 115/76 (89) 98 04/02/19 21:00 Room Air 04/02/19 20:00 99.2 110 19 148/87 (107) 97 04/02/19 17:00 101.2 04/02/19 16:00 100.9 117 20 148/91 (110) 97 Intake and Output 04/02/19 04/03/19 19:00 07:00 Intake Total 2220 ml 1400 ml Balance 2220 ml 1400 ml Intake IV Total 2220 ml 1400 ml # Voids 6 5 Laboratory Tests 04/03/19 09:30: White Blood Count 9.7, Red Blood Count 4.56, Hemoglobin 12.9, Hematocrit 38.6, Mean Corpuscular Volume 85, Mean Corpuscular Hemoglobin 28.3, Mean Corpuscular Hemoglobin Concent 33.4, Red Cell Distribution Width 11.4L, Platelet Count 260, Mean Platelet Volume 6.5, Neutrophils (%) (Auto) 67.1, Lymphocytes (%) (Auto) 24.7, Monocytes (%) (Auto) 5.9, Eosinophils (%) (Auto) 1.1, Basophils (%) (Auto ) 1.2, Sodium Level 142, Potassium Level 3.5, Chloride Level 107, Carbon Dioxide Level 27, Anion Gap 8, Blood Urea Nitrogen 5L, Creatinine 0.6, Estimat Glomerular Filtration Rate > 60, Glucose Level 93, Calcium Level 8.6 Height (Feet): 5 Height (Inches): 1.00 Weight (Pounds): 224 Objective General Appearance: WD/WN, no apparent distress, alert, obese EENT: PERRL/EOMI, normal ENT inspection Neck: non-tender, normal alignment, supple Cardiovascular: normal peripheral pulses, normal rate, regular rhythm, no JVD Respiratory/Chest: chest wall non-tender, lungs clear, normal breath sounds Abdomen: normal bowel sounds, other - Right upper quadrant tenderness to palpation. +harper's sign Extremities: normal range of motion, non-tender, normal inspection Edema: other - No lower extremity edema bilaterally Neurologic: closing supervisor II-XII grossly normal, no motor/sensory deficits, alert, oriented x 3 Skin: normal pigmentation, warm/dry Michael Enins M.D. Apr 03, 2019 14:09
[2019-04-03 16:00] VITALS: BP 116/75
--- NOTE | 2019-04-03 19:23 | NUR ---
HAND-OFF: Report given to RN Lowell Al.
--- NOTE | 2019-04-03 19:46 | NUR ---
NURSE NOTES: Received report from CLIFF Zavala. Patient a/a/o x4, breathing unlabored on room air without distress. Denies pain or discomfort at this time. IV noted on right arm intact. Bed placed at the lowest with brake and siderails up for safety. Call light placed within reach. Will continue to monitor and provide care as ordered.
[2019-04-03 20:00] VITALS: BP 118/73
[2019-04-04] VITALS (15 sets, daily range): BP systolic 121–156; BP diastolic 68–93
[2019-04-04 07:14] LABS: INR 0.9 (0.9-1.1)
[2019-04-04 07:43] LABS: BASOPHILS % (AUTO) 0.7 % (0.0-2.0); HEMATOCRIT 36.5 % (37.0-47.0); HEMOGLOBIN 12.5 G/DL (12.0-16.0); LYMPHOCYTES % (AUTO) 24.2 % (20.0-45.0); MEAN CORPUSCULAR VOLUME 84 FL (80-99); MONOCYTES % (AUTO) 5.9 % (1.0-10.0); NEUTROPHILS % (AUTO) 66.2 % (45.0-75.0); PLATELET COUNT 251 K/UL (150-450); RED BLOOD COUNT 4.33 M/UL (4.20-5.40); RED CELL DISTRIBUTION WIDTH 10.9 % (11.6-14.8); WHITE BLOOD COUNT 7.2 K/UL (4.8-10.8)
[2019-04-04 07:49] LABS: ALANINE AMINOTRANSFERASE 33 U/L (12-78); ALBUMIN 2.7 G/DL (3.4-5.0); ALBUMIN/GLOBULIN RATIO 0.7 (1.0-2.7); ALKALINE PHOSPHATASE 62 U/L (46-116); AMYLASE 28 U/L (25-115); ANION GAP 12 mmol/L (5-15); ASPARTATE AMINO TRANSFERASE 31 U/L (15-37); BILIRUBIN,TOTAL 0.4 MG/DL (0.2-1.0); BLOOD UREA NITROGEN 6 mg/dL (7-18); CALCIUM 8.3 MG/DL (8.5-10.1); CARBON DIOXIDE 22 MMOL/L (21-32); CHLORIDE 107 MMOL/L (98-107); CREATININE 0.4 MG/DL (0.55-1.30); POTASSIUM 3.4 MMOL/L (3.5-5.1); SODIUM 141 MMOL/L (136-145)
--- NOTE | 2019-04-04 07:52 | NUR ---
HAND-OFF: Report given to CLIFF Barillas.
--- NOTE | 2019-04-04 07:55 | NUR ---
NURSE NOTES: Received report from Minsu, RN. Pt is alert and awake, on RA, no complaints of pain or distress noted. IV site leaking, will place a new one. Bed locked in lowest position, side rails up, call light within reach. Will continue to monitor.
[2019-04-04] MEDS: Docusate 100mg cap ORAL SCH ×2 (09:17→17:18)
[2019-04-04] MEDS: cefTRIAXone 1 GM in NS 55 ML IVPB SCH (09:18)
--- NOTE | 2019-04-04 10:30 | NUR ---
NURSE NOTES: Called Dr. Bennett's office, spoke with Liam regarding pt's K 3.4. Awaiting for MD's call.
--- NOTE | 2019-04-04 10:36 | NUR ---
*-* INSURANCE *-* ALL AVAILABLE CLINICALS HAVE BEEN FAXED TO: [employer]OL[employer]ARREAL:CECELIA P: [phone] F: [phone]
[2019-04-04] MEDS ORDERED: Lidocaine 1% 10mg/ml/Epi 0.005mg/ml 30ml vial INJ ONE (11:58)
[2019-04-04] MEDS ORDERED: NS Irrig 1000ml IRRIG ONE ×2 (12:04→13:08)
[2019-04-04] MEDS ORDERED: Midazolam 2mg/2ml Inj ONE (12:22)
[2019-04-04] MEDS ORDERED: fentaNYL 100 mcg/2 mL IV ONE (12:22)
[2019-04-04] MEDS ORDERED: Iothalamate Meglumine 60% 30ML INJ ONE (12:22)
[2019-04-04] MEDS ORDERED: Rocuronium Bromide 50mg/5ml Inj IV ONE (12:29)
[2019-04-04] MEDS ORDERED: Succinylcholine 20mg/ml 10ml vial ONE (12:29)
[2019-04-04] MEDS ORDERED: Neostigmine 1mg/ml 10ml Inj ONE (12:30)
[2019-04-04] MEDS ORDERED: Sterile Water Irrig 1000ml IRRIG ONE (12:30)
[2019-04-04] MEDS ORDERED: Propofol 200mg/20ml IV ONE (12:30)
[2019-04-04] MEDS ORDERED: NS Irrig 1000ml ONE (12:30)
--- NOTE | 2019-04-04 13:07 | Pre-Procedure Note/Attestation ---
Pre-Procedure Note/Attestation Complete Prior to Procedure Procedure Narrative: lap althea Indications for Procedure Pre-Operative Diagnosis: acute cholecystitis Attestation I attest that I discussed the nature of the procedure; its benefits; risks and complications; and alternatives (and the risks and benefits of such alternatives ), prior to the procedure, with the patient (or the patient's legal merchandiser retail representative). I attest that, if there was a reasonable possibility of needing a blood transfusion, the patient (or the patient's legal merchandiser retail representative) was given the [facility] standardized written summary, pursuant to the Eliel [place] Blood Safety Act ([place] Health and Safety Code # 1645, as amended). I attest that I re-evaluated the patient just prior to the surgery and that there has been no change in the patient's H&P, except as documented below: Seth Up Apr 04, 2019 13:07
[2019-04-04] MEDS ORDERED: NS Irrig 2000ml IRRIG ONE (13:08)
[2019-04-04] MEDS ORDERED: LR 1000ml 1,000 ML IVLG SCH (13:24)
[2019-04-04] MEDS ORDERED: Metoclopramide 10mg/2ml Inj IVP PRN (13:30)
[2019-04-04] MEDS ORDERED: Hydromorphone 0.5mg/0.5ml inj IVP PRN (13:30)
[2019-04-04] MEDS ORDERED: DiphenhydrAMINE 50mg/ml Inj IVP PRN (13:30)
[2019-04-04] MEDS ORDERED: Meperidine 50mg/ml Inj(FOR RIGORS ONLY) IV PRN (13:30)
[2019-04-04] MEDS ORDERED: Ketorolac 30mg Inj IV PRN (13:30)
[2019-04-04] MEDS ORDERED: Metoprolol 5mg/5ml Inj ONE (13:30)
[2019-04-04] MEDS ORDERED: Glycopyrrolate 0.2mg/ml 1ml Vial ONE (13:30)
[2019-04-04] MEDS ORDERED: Acetaminophen (Non formulary) 100 ML IV ONE (13:30)
[2019-04-04] MEDS ORDERED: Ketorolac 30mg Inj ONE (13:30)
[2019-04-04] MEDS ORDERED: Morphine Sulfate 10mg/ml Inj ONE (13:32)
[2019-04-04] MEDS ORDERED: Sodium Chloride 10ml vial INJ ONE (13:32)
--- NOTE | 2019-04-04 14:23 | Immediate Post-Op Evaluation ---
Immediate Post-Op Evalulation Immediate Post-Op Evalulation Procedure: Laparoscopic cholecystectomy Date of Evaluation: Apr 04, 2019 Time of Evaluation: 14:21 IV Fluids: 1000 Blood Products: none Estimated Blood Loss: 50 Urinary Output: none Blood Pressure Systolic: 132 Blood Pressure Diastolic: 74 Pulse Rate: 86 Respiratory Rate: 22 O2 Sat by Pulse Oximetry: 99 Temperature (Fahrenheit): 98.6 Pain Score (1-10): 1 Nausea: No Vomiting: No Complications none Patient Status: reacts, patent, extubated, none Hydration Status: adequate Edu Maldonado MD Apr 04, 2019 14:23
--- NOTE | 2019-04-04 14:56 | Brief Operative Note ---
Immediate Post Operative Note Operative Note Pre-op Diagnosis: acute cholecystitis Procedure: lap althea Post-op Diagnosis: same as pre-op Surgeon: sarai Anesthesiologist: madeline Anesthesia: general, local Specimen: yes Complications: none Condition: stable Fluids: see records Estimated Blood Loss: minimal Drains: none Implant(s) used?: No Seth Up Apr 04, 2019 14:56
--- NOTE | 2019-04-04 15:40 | NUR ---
NURSE NOTES: Pt returned from laparoscopic cholecystectomy surgery. Received an update from Maren Loo RN. Pt is awake and alert, on 3L NC. No apparent distress noted. VS obtained, see flowsheet. Pain level is at 4. Dressings x 4 on abd, intact and dry. Will continue to monitor.
--- NOTE | 2019-04-04 15:49 | General Progress Note ---
Assessment/Plan Problem List: (1) Symptomatic cholelithiasis ICD Codes: K80.20 - Calculus of gallbladder without cholecystitis without obstruction SNOMED: 033190555, 575450176 (2) Acute cholecystitis ICD Codes: K81.0 - Acute cholecystitis SNOMED: 71766994 (3) Obesity ICD Codes: E66.9 - Obesity, unspecified SNOMED: 777576584, 764143504 (4) Abdominal pain ICD Codes: R10.9 - Unspecified abdominal pain SNOMED: 91923006 Status: stable Assessment/Plan: 43-year-old female with a history of obesity presenting with symptomatic cholelithiasis. #Acute cholecystitis #Abdominal pain > HIDA positive -Ad[facility] to [facility] -Appreciate general surgery recommendations: Dr. Up. NPO for surgery 04/04 -Continue Rocephin 1 g IV daily (04/01/19 - ) -Continue metronidazole 500 mg every 8 hours (04/01/19 - ) -blood cultures x 2 -Tylenol and morphine as needed for pain -Zofran as needed for nausea -Sodium chloride at 100 cc/h #Chest pressure on 04/02/19. Suspect related to anxiety. resolved -EKG -Troponin, negative #Obesity -Counseled patient on weight loss #Hypokalemia replace today FENPPX DVTPPX: SCDs, GI PPX: pepcid Fluids: as above Diet: NPO except meds Lines: peripheral PT/OT: none needd Code status: Full Dispo: Home after surgery Reason for Continued Hospitalization: Abdominal pain 39 minutes spent on this encounter. Discussed with RN, Patient, and general surgery. > 50% spent on counseling and care coordination. Time of note may not reflect time patient was seen. Subjective Date patient seen: Apr 04, 2019 ROS Limited/Unobtainable: No Constitutional: Denies: no symptoms, chills, diaphoresis, fever, malaise, weakness, other HEENT: Denies: no symptoms, eye pain, blurred vision, tearing, double vision, ear pain, ear discharge, nose pain, nose congestion, throat pain, throat swelling, mouth pain, mouth swelling, other Cardiovascular: Denies: no symptoms, chest pain, edema, irregular heart rate, lightheadedness, palpitations, syncope, other Respiratory: Denies: no symptoms, cough, orthopnea, shortness of breath, SOB with excertion, SOB at rest, sputum, stridor, wheezing, other Gastrointestinal/Abdominal: Reports: no symptoms, abdomen distended, black stools, tarry stools, blood in stool, constipated, diarrhea, difficulty swallowing, nausea, poor appetite, poor fluid intake, rectal bleeding, vomiting , other Genitourinary: Denies: no symptoms, burning, discharge, frequency, flank pain, hematuria, incontinence, pain, urgency, other Neurologic/Psychiatric: Denies: no symptoms, anxiety, depressed, emotional problems, headache, numbness, paresthesia, pre-existing deficit, seizure, tingling, tremors, weakness, other Endocrine: Denies: no symptoms, excessive sweating, flushing, intolerance to cold, intolerance to heat, increased hunger, increased thirst, increased urine, unexplained weight gain, unexplained weight loss, other Allergies: Coded Allergies: No Known Allergies (Unverified , 04/01/19) Subjective seen and examined at bedside. no acute overnight events. for lap cholecystectomy today Objective Last 24 Hour Vital Signs Date Time Temp Pulse Resp B/P (MAP) Pulse Ox O2 Delivery O2 Flow Rate FiO2 04/04/19 15:25 97.3 04/04/19 15:00 74 16 140/78 100 Nasal Cannula 3 04/04/19 14:45 73 19 136/84 100 Nasal Cannula 3 04/04/19 14:35 83 21 131/82 100 Nasal Cannula 3 04/04/19 14:25 87 18 131/78 100 Simple Mask 6 04/04/19 14:23 86 22 99 04/04/19 14:20 96 24 129/77 100 Simple Mask 6 04/04/19 14:17 99.4 112 24 136/78 100 Simple Mask 6 04/04/19 12:00 98.2 95 22 138/91 (107) 98 04/04/19 10:00 Room Air 04/04/19 08:00 97.7 83 22 135/93 (107) 96 04/04/19 04:00 97.5 79 18 122/72 (89) 99 04/04/19 00:00 98.4 83 18 156/81 (106) 98 04/03/19 21:00 Room Air 04/03/19 20:00 98.2 95 20 118/73 (88) 97 04/03/19 16:00 98.5 85 20 116/75 (89) 96 Intake and Output 04/03/19 04/04/19 19:00 07:00 Intake Total 1000 ml Balance 1000 ml Intake IV Total 1000 ml # Voids 2 3 Laboratory Tests 04/04/19 06:06: White Blood Count 7.2, Red Blood Count 4.33, Hemoglobin 12.5, Hematocrit 36.5L, Mean Corpuscular Volume 84, Mean Corpuscular Hemoglobin 28.9, Mean Corpuscular Hemoglobin Concent 34.3, Red Cell Distribution Width 10.9L, Platelet Count 251, Mean Platelet Volume 6.6, Neutrophils (%) (Auto) 66.2, Lymphocytes (%) (Auto) 24.2, Monocytes (%) (Auto) 5.9, Eosinophils (%) (Auto) 3.0, Basophils (%) (Auto ) 0.7, Prothrombin Time 10.0, Prothromb Time International Ratio 0.9, Activated Partial Thromboplast Time 32, Sodium Level 141, Potassium Level 3.4L, Chloride Level 107, Carbon Dioxide Level 22, Anion Gap 12, Blood Urea Nitrogen 6L, Creatinine 0.4L, Estimat Glomerular Filtration Rate > 60, Glucose Level 77, Calcium Level 8.3L, Total Bilirubin 0.4, Aspartate Amino Transf (AST/SGOT) 31, Alanine Aminotransferase (ALT/SGPT) 33, Alkaline Phosphatase 62, Total Protein 6.7, Albumin 2.7L, Globulin 4.0, Albumin/Globulin Ratio 0.7L, Amylase Level 28, Lipase 70L Height (Feet): 5 Height (Inches): 0.00 Weight (Pounds): 228 Objective General Appearance: WD/WN, no apparent distress, alert, obese EENT: PERRL/EOMI, normal ENT inspection Neck: non-tender, normal alignment, supple Cardiovascular: normal peripheral pulses, normal rate, regular rhythm, no JVD Respiratory/Chest: chest wall non-tender, lungs clear, normal breath sounds Abdomen: normal bowel sounds, other - Right upper quadrant tenderness to palpation. +harper's sign Extremities: normal range of motion, non-tender, normal inspection Edema: other - No lower extremity edema bilaterally Neurologic: curriculum manager II-XII grossly normal, no motor/sensory deficits, alert, oriented x 3 Skin: normal pigmentation, warm/dry Kavian,Michael M.D. Apr 04, 2019 15:49
--- NOTE | 2019-04-04 15:50 | NUR ---
NURSE NOTES: Spoke to Kacy in pharmacy about rescheduling Flagyl. She said it's ok to give it as a late admin at 1600.
[2019-04-04] MEDS ORDERED: Milk of Magnesia 30ml Ud ORAL PRN (16:00)
[2019-04-04] MEDS ORDERED: HYDROcodone/Acetamin 5/325 tab ORAL PRN (16:00)
--- NOTE | 2019-04-04 17:33 | NUR ---
RT came to deliver the IS. RN encouraged pt to use it every hour to keep the lungs open.
[2019-04-04] MEDS: HYDROcodone/Acetamin 10/325 tab ORAL PRN ×2 (17:59→23:50)
--- NOTE | 2019-04-04 18:00 | NUR ---
Pt asked for pain medication. VS obtaied, stable. See flowsheet.
--- NOTE | 2019-04-04 19:15 | NUR ---
HAND-OFF: Report given to CLIFF Etienne.
--- NOTE | 2019-04-04 19:51 | NUR ---
NURSE NOTES: Received report from CLIFF Barillas. Patient a/a/o x 4, breathing unlabored on room air without distress. Verbalized discomfort when needing to cough and burp. Provided pillow for support, will continue to monitor. IV noted on the left hand intact and patent. SCDs on and working properly. Bed placed at the lowest with brake, and siderails up for safety. Call light placed within reach. Will continue to monitor and provide care as ordered.
--- NOTE | 2019-04-04 22:00 | Operative Note - Dictated ---
DATE OF OPERATION: 04/04/2019 PREOPERATIVE DIAGNOSIS: Acute cholecystitis. POSTOPERATIVE DIAGNOSIS: Acute cholecystitis. OPERATION PERFORMED: Laparoscopic cholecystectomy. ATTENDING SURGEON: Seth Up M.D. GEODESY TEACHER: None. ANESTHESIOLOGIST: Edu Maldonado M.D. ANESTHESIA: General PROJECT ENG. ESTIMATED BLOOD LOSS: Minimal. IV FLUIDS: Please see anesthesia records. COMPLICATIONS: None. DRAINS: None. COUNTS: Sponge and needle count are correct x2. ANTIBIOTICS: The patient is on scheduled intravenous antibiotics for acute active inflammatory process. WOUND CLASSIFICATION: Class 3. SPECIMENS: Gallbladder and retained stones sent to pathology for review. INDICATIONS FOR PROCEDURE: This is a 43-year-old female, who presented to the emergency department at [facility] complaining of worsening abdominal pain in the right upper quadrant with radiation to the back, nausea, and emesis. The patient states acute onset, unrelenting and not improving on IV antibiotics and bowel rest and fluids. HIDA scan performed identifying nonvisualization of the gallbladder consistent with acute cholecystitis. Leukocytosis. History of similar events 5 months ago, but not as severe. Given these findings, surgery was indicated and recommended. Risks, benefits, and alternatives were discussed patient in detail, who expressed understanding and consented to surgery. OPERATIVE NOTE: The patient was taken to the operating room and placed on the operating table in supine position with bilateral arms out. All bony prominences were well padded. SCDs placed. Preoperative time-out taken in identifying the patient, procedure, operative staff, and surgical staff. General anesthesia was induced and the patient was intubated. The patient was already on scheduled IV antibiotics. The abdomen was clipped, prepped, and draped in standard surgical fashion. A local anesthetic was infiltrated throughout the procedure at skin incision and port sites to the patient's comfort. An infraumbilical incision was made and carried down through the subcutaneous tissue to the fascia. The fascia was elevated and incised. Entry into the abdomen was obtained using open Vaishali technique without complication. A 12 mm Vaishali trocar was inserted and the abdomen was insufflated to 12 to 15 mmHg. The patient tolerated the insufflation well. The laparoscope was inserted and the abdomen was inspected. No injury from initial trocar placement. No significant intra-abdominal pathology identified. The patient had a fairly boggy liver with blunted edges and omentum in the right upper quadrant over draping the gallbladder. Secondary trocars were placed under direct visualization beginning with a 12 mm epigastric, followed by two 5 mm right subcostal. The patient was placed in reverse Trendelenburg with left side down. Laparoscopic graspers were used and these omental adhesions to the gallbladder were slowly dissected down followed by identification of the gallbladder. The gallbladder was noted to have a significantly thickened wall with edema. The dome of the gallbladder was grasped and retracted over the liver. Infundibulum was grasped and retracted towards the right lower quadrant. Gently, the peritoneal adhesions to the gallbladder were taken down around the area of the infundibulum until the critical view could be identified. The cystic duct and cystic artery were identified as only two structures entering the gallbladder with the clear visualization of liver on both ends identifying a clear critical view. The cystic artery was then doubly clipped and divided. Once clipped and divided, it was noted to be pulsatile. was noted to be pulsating clearly noting the cystic artery. The only remaining structure entering into the infundibulum was the cystic duct. Cystic duct was doubly clipped and divided. The gallbladder was taken off the remaining liver attachments using electrocautery. There was a fairly thickened gallbladder wall easily identifiable and dissectible. Hemostasis was obtained from the liver bed with electrocautery. Gallbladder and contained stones were placed in endoscopic retrieval bag and removed from the abdomen using the umbilical port site. The right upper quadrant was irrigated and suctioned until clear. Two Surgicel's were left in the liver bed to ensure hemostasis. At this time, we began the conclusion of our procedure. The bed was flattened out and the trocars were removed under direct visualization without complication. The umbilical trocar site fascia was reapproximated using a [id number] #0 Vicryl suture. The remaining skin incisions were reapproximated using 4-0 Monocryl subcuticular interrupted sutures. Benzoin, Steri-Strips, and dressings were applied. The patient tolerated the procedure well, was extubated, and taken to the postanesthetic care unit in stable condition. Seth Up M.D. DR: ELAINE JOB#: [id number] CC:
[2019-04-05] VITALS: BP 130/88
[2019-04-05 04:00] VITALS: BP 118/73
--- NOTE | 2019-04-05 07:29 | NUR ---
NURSE NOTES: PT AXOX4, CALM, RESTING IN BED. PT IN SITTING POSITION. PT STATES SHE HAS PAIN 7/10 OF ABDOMEN. PT STATES SHE DOES NOT WANT TO TAKE PAIN MEDICATION AT THIS TIME, WANTS TO TRY TO EAT BREAKFAST. PER PT, SHE THINKS THE PAIN MEDICATION MAY BE CAUSING NAUSEA. PT EDUCATED ON PRN ZOFRAN FOR N/V. PT VERBALIZED UNDERSTANDING AND WILL LET RN KNOW IF SHE WANTS TO TAKE ZOFRAN. LAPAROSCOPY SITES COVERED WITH GAUZE AND TEGADERM. MODERATE SERO-SANG DRAINAGE NOTED ON UMBILICAL SITE. IN NO APPARENT DISTRESS AT THIS TIME. CALL LIGHT WITHIN REACH. WILL CONTINUE TO MONITOR.
--- NOTE | 2019-04-05 07:30 | NUR ---
HAND-OFF: Report given to CLIFF Cole.
[2019-04-05 08:00] VITALS: BP 128/91
[2019-04-05] MEDS: Docusate 100mg cap ORAL SCH ×2 (08:54→17:14)
[2019-04-05] MEDS: cefTRIAXone 1 GM in NS 55 ML IVPB SCH (08:54)
[2019-04-05] MEDS: HYDROcodone/Acetamin 10/325 tab ORAL PRN ×2 (08:55→14:14)
--- NOTE | 2019-04-05 09:15 | Discharge Summary ---
Discharge Summary Hospital Course Date of Admission Apr 01, 2019 at 15:11 Date of Discharge 04/05/2019 Admitting Diagnosis symptomatic cholelithiasis HECTOR Blanton is a 43 year old female who was admitted on Apr 01, 2019 at 15:11 for Symptomatic Cholelithiasis Consultations General surgery: Dr. Up Procedures Laparoscopic cholecystectomy Hospital Course 43-year-old female with a history of obesity presenting with symptomatic cholelithiasis. #Acute cholecystitis #Abdominal pain > HIDA positive -Admit to [facility] -Appreciate general surgery recommendations. now s/p lap cholecystectomy 2018. POD #1 -s/p Rocephin 1 g IV daily (04/01/19 -04/04 ) -s/p metronidazole 500 mg every 8 hours (04/01/19 -04/04 ) -blood cultures x 2 -Tylenol and morphine as needed for pain -Zofran as needed for nausea -s/p Sodium chloride at 100 cc/h -Should arrange outpatient follow up with Dr. Up #Chest pressure on 04/02/19. Suspect related to anxiety. resolved -EKG, Troponin, negative #Obesity -Counseled patient on weight loss #Hypokalemia replaced prn FENPPX DVTPPX: SCDs, GI PPX: pepcid Code status: Full Dispo: Home after surgery Today on exam she is awake and alert. abdomen, soft, non distended, minimal incisional site pain. ext: no edema bilaterally. 35 minutes spent on this encounter. Discussed with RN, Patient, and general surgery. > 50% spent on counseling and care coordination. Time of note may not reflect time patient was seen. Discharge Medications New Medications: Docusate Sodium* (Colace*) 100 Mg Capsule 100 MG ORAL TWICE A DAY for 5 Days, #10 CAP Hydrocodone Bit/Acetaminophen 5-325* (Springs 5-325*) 1 Each Tablet 1 TAB ORAL Q4H PRN for 4 Days, #24 TAB Discharge Condition Upon Discharge: stable Discharge Disposition Patient was discharged to home Discharge Diagnoses: (1) Acute cholecystitis (2) Symptomatic cholelithiasis (3) Obesity Michael Ennis M.D. Apr 05, 2019 09:15
--- NOTE | 2019-04-05 11:42 | NUR ---
NURSE NOTES: DR DAMIAN WAS AT BEDSIDE. PER , NO NEED FOR NEW IV ACCESS BECAUSE IV ANTIBIOTICS WILL BE STOPPED. Addendum: 04/05/19 at 1154 by IRINA ROSEN RN RN PER DR DAMIAN, ORDER FOR DISCHARGE WILL BE PUT IN TODAY. PT MAY DECIDE TO LEAVE TODAY OR TOMORROW. PER PT, SHE WILL LEAVE TOMORROW.
[2019-04-05 11:48] VITALS: BP 115/69
[2019-04-05] MEDS ORDERED: COLACE100 MG ORAL (11:56)
[2019-04-05] MEDS ORDERED: NORCO 5-325 TA1 EACH ORAL (11:56)
--- NOTE | 2019-04-05 11:56 | Discharge Instructions ---
Discharge Instructions Discharge Instructions Activity: resume normal activities, as tolerated Special Instructions follow up with dr. Up For Congestive Heart Failure Reminder Report to your physician any weight gain of 5 pounds or more in one week. Michael Ennis M.D. Apr 05, 2019 11:56
--- NOTE | 2019-04-05 14:52 | 48 Hour Post Anesthesia Eval ---
Post Anesthesia Evaluation Procedure: Laparoscopic cholecystectomy Date of Evaluation: Apr 05, 2019 Time of Evaluation: 14:51 Blood Pressure Systolic: 115 0: 69 Pulse Rate: 90 Respiratory Rate: 16 Temperature (Fahrenheit): 98.1 O2 Sat by Pulse Oximetry: 95 Airway: patent Nausea: No Vomiting: No Pain Intensity: 2 Hydration Status: adequate Cardiopulmonary Status: Stable Mental Status/LOC: patient returned to baseline Follow-up Care/Observations: 0 Post-Anesthesia Complications: 0 Follow-up care needed: N/A Heron Trejo MD Apr 05, 2019 14:52
--- NOTE | 2019-04-05 15:27 | NUR ---
*-* INSURANCE *-* ALL AVAILABLE CLINICALS HAVE BEEN FAXED TO: [facility] P: [phone] F: [phone]
[2019-04-05 15:53] VITALS: BP 124/78
--- NOTE | 2019-04-05 19:16 | NUR ---
HAND-OFF: Report given to Ulises ARMSTRONG RN.
--- NOTE | 2019-04-05 19:20 | NUR ---
NURSE NOTES: Received report from Griselda Cole. Patient a/a/o x 4, breathing unlabored on room air without distress. No IV access, MD aware. Planned to be discharged tomorrow. Family member acknowledged at the bedside. No n/v noted, tolerating diet. Bed placed at the lowest with brake and siderails up for safety. Call light placed at the bedside. Will continue to monitor and provide care as ordered.
--- NOTE | 2019-04-05 19:43 | NUR ---
CASE MANAGEMENT: REVIEW 43Y/FEMALE PRESENTED TO ED FROM HOME CC: EPIGASTRIC PAIN 03/09 X1 DAY SI: ACUTE CHOLECYSTITIS LAP THANH 04/04 T 97.5 HR 80 RR 18 BP 125/86 SAT 100% ROOM AIR US ABD -- CHOLELITHIASIS WITH STONES MEASURING UP TO 2.7 CM AND THE STONE LODGED IN THE GALLBLADDER NECK HIDA SCAN -- CYSTIC DUCT OBSTRUCTION COMPATIBLE WITH CHOLECYSTITIS IS: MORPHINE IV X1 PEPCID IV X1 ZOFRAN IV X1 TORADOL IV X1 D5 1/2 NS IVF BOLUS X1 PATIENT ADMITTED TO MED/SURG UNIT 04/01/2019 DCP: PATIENT IS FROM HOME
[2019-04-05 20:00] VITALS: BP 134/93
--- NOTE | 2019-04-05 21:00 | NUR ---
NURSE NOTES: Daughter took the clothing from the patient's belonging. Patient informed RN.
[2019-04-06] VITALS: BP 121/61
[2019-04-06 04:00] VITALS: BP 117/79
--- NOTE | 2019-04-06 05:30 | NUR ---
NURSE NOTES: Received report from Minsu RN. AAO x 4 on room air. no acute distress. No IV access, aware. Planned to be discharged. Call light within reach. bed is the lowest position. Will continue to provide plan of care
--- NOTE | 2019-04-06 05:40 | NUR ---
HAND-OFF: Report given to CLIFF Garrison and CLIFF Garcia.
--- NOTE | 2019-04-06 07:18 | NUR ---
HAND-OFF: Report given to Douglas Gant RN.
--- NOTE | 2019-04-06 07:32 | NUR ---
NURSE NOTES: PT AXOX4, CALM, RESTING IN BED. PT TO BE DISCHARGED TODAY. PT STATES HER FRIEND WILL PICK HER UP AROUND 1:00PM. PT HAS APPOINTMENT SET UP WITH DR GREENWOOD FOR FOLLOW UP. IN NO APPARENT DISTRESS AT THIS TIME. WILL CONTINUE TO MONITOR.
[2019-04-06 08:00] VITALS: BP 124/75
[2019-04-06] MEDS: Docusate 100mg cap ORAL SCH (08:01)
[2019-04-06] MEDS ORDERED: ACETAMINOPHEN-1 EAC1 ORAL (10:49)
[2019-04-06 12:00] VITALS: BP 125/90
--- NOTE | 2019-04-06 13:34 | NUR ---
NURSE NOTES: RN CLARIFIED WITH DR DAMIAN WHETHER SHE WANTED PT TO GO HOME WITH NORCO 5/325MG OR TYLENOL #3. PER DR DAMIAN, FOLLOW DR GREENWOOD'S PRESCRIPTIONS. RN EDUCATED PT ON PRESCRIPTIONS, DISCHARGE PACKET, AND S/S FOR EMERGENCY SERVICES. PT VERBALIZED UNDERSTANDING. PT HAD ACTIVE BOWEL SOUNDS AND HAD 2 BOWEL MOVEMENTS. PT VERBALIZED SHE HAS APPOINTMENT WITH DR GREENWOOD'S OFFICE ON FOLLOWING WEDNESDAY. BELONGINGS CHECKED AT BEDSIDE AND ALL ACCOUNTED. PT WAS DISCHARGED WITH FRIEND VIA PRIVATE VEHICLE.
== END 2019-04-06 13:29 | disposition home or self-care (01) | DRG 263 ==
LOC: EMR 10:27 → EDBEDREQ 15:05 → 4E 15:11
PROC: 0FT44ZZ Resection of Gallbladder, Percutaneous Endoscopic Approach (ICD-10-PCS; principal; 2019-04-04 12:00)
DX: K80.00 Calculus of gallbladder with acute cholecystitis without obstruction (principal); E66.9 Obesity, unspecified; Z68.41 Body mass index [BMI] 40.0-44.9, adult; E87.6 Hypokalemia; Z90.12 Acquired absence of left breast and nipple; R07.89 Other chest pain
CPT/HCPCS: 36415; 76700; 78266; 80048; 80053; 80307; 81003; 81025; 82150; 83690; 84484; 85025; 85610; 85651; 85730; 86140; 87040; 94003; 94150; 96365; 96366; 96375; 96376; 99285; J2250; J2405; J2710; J7030; J8499